=== PATIENT | female | born 1965 | race American Indian/Alaskan Native ===

== ENCOUNTER 2016-09-21 07:06 | Day surgery (SDC) | payer MEDICARE ==
[2016-09-21] MEDS ORDERED: NACL 0.9% 1000 ML 1,000 ML IV SCH (09:00)
--- NOTE | 2016-09-21 10:11 | Anesthesia Day of Surgery ---
Anesthesia Day of Surgery - Day of Surgery Patient Examined: Yes Patient H&P Reviewed: Yes Patient is NPO: Yes
--- NOTE | 2016-09-21 10:13 | Anesthesia Consultation ---
Anesthesia Consult and Med Hx Date of service: 09/21/16 - Airway Anesthetic Teeth Evaluation: Poor (missing bottom teeth, loose tooth upper left canine) ROM Head & Neck: Adequate Mental/Hyoid Distance: Adequate Mallampati Class: Class II Intubation Access Assessment: Probably Good - Pulmonary Exam CTA: Yes - Cardiac Exam Cardiac Exam: RRR - Pre-Operative Health Status ASA Pre-Surgery Classification: ASA3 Proposed Anesthetic Plan: MAC - Pulmonary Hx Smoking: Yes Hx Asthma: Yes (uses inhaler everyday, used this AM) COPD: Yes Hx Sleep Apnea: Yes (2016 with CPAP) - Cardiovascular System Hx Hypertension: No Hx Heart Attack/AMI: No - Central Nervous System Hx Seizures: No CVA: No - Endocrine Hx Renal Disease: No Hx Liver Disease: No Hx Non-Insulin Dependent Diabetes: No - Hematic Hx Anemia: Yes (hx of blood transfusion) - Other Systems Hx Alcohol Use: No Hx Obesity: Yes (BMI 60) - Additional Comments Anesthesia Medical History Comments: NAC
[2016-09-21] MEDS ORDERED: DIPRIVAN 10 MG/ML IV ONE (11:37)
--- NOTE | 2016-09-21 12:09 | Operative Report ---
Operative Report Operative Report: OPERATIVE REPORT - EGD DATE 09/21/2016 SURGERY: Upper endoscopy. SURGEON: Cr Verduzco M.D. LIVE STUDY MANAGER: Benjamín Kaye M.D. PRE OP DX: Dyspepsia POST OP DX: Hiatal Hernia TYPE OF ANESTHESIA: MAC. ESTIMATED BLOOD LOSS: None. COMPLICATIONS: None. SPECIMENS REMOVED: None. FINDINGS: 1. Hiatal hernia. 2. Otherwise, normal esophagus, stomach and first portion of duodenum. INDICATION FOR PROCEDURE: Patient is a 51-year-old female with a long history of morbid obesity. She is planned to have a weight loss procedure and is here for preoperative planning EGD. PROCEDURE DETAILS: After consent was reviewed, patient was taken back to the operating room where patient was placed in the left lateral decubitus position and a bite block was placed in the mouth. After a time-out was called, MAC anesthesia was initiated. I then passed the endoscope into her oropharynx, into her esophagus, visualized the entire esophagus, which was all within normal limits. I then visualized the stomach and the first portion of the duodenum and there were no abnormalities I could clearly visualize. I then retroflexed the scope in the stomach and visualized the hiatus and I could see a medium size hiatal hernia. I then desufflated the stomach and removed the endoscope. Patient tolerated procedure well and was transferred to recovery room in good and stable condition.
--- NOTE | 2016-09-21 12:10 | Discharge Summary ---
Providers - Providers Date of discharge: 09/21/16 Attending physician: TERI KRAFT Hospitalization Condition: Stable Procedures: EGD Disposition: DISCHARGED TO HOME OR SELFCARE Core Measure Documentation - Palliative Care Palliative Care/ Comfort Measures: Not Applicable - Core Measures Any of the following diagnoses?: none Exam - Physical Exam Narrative exam: unchanged from preop - Constitutional Vitals: Temp Pulse Resp BP Pulse Ox 98.1 F 57 L 13 134/69 99 09/21/16 08:57 09/21/16 08:57 09/21/16 08:57 09/21/16 08:57 09/21/16 08:57 Plan Activity: advance as tolerated Diet: low carbohydrate
[2016-09-21 12:41] VITALS: BP 116/65
--- NOTE | 2016-09-21 13:31 | Post Anesthesia Evaluation ---
- Post Anesthesia Evaluation Patient Participated: Yes Airway Patent: Yes Stable Respiratory Function: Yes Nausea/Vomiting: No Temp > 96.8F: Yes Pain Manageable: Yes Adequeate Hydration: Yes Anesthesia Complications: No Block Receding Appropriately: Not Applicable Patient on Ventilator: No
== END 2016-09-21 07:07 | disposition home or self-care (01) ==
LOC: GIO 07:06
PROVIDERS: ATTEND Specialist
DX: K44.9 Diaphragmatic hernia without obstruction or gangrene (principal); J45.909 Unspecified asthma, uncomplicated; J43.9 Emphysema, unspecified; G47.30 Sleep apnea, unspecified; K21.9 Gastro-esophageal reflux disease without esophagitis; D64.9 Anemia, unspecified; G43.909 Migraine, unspecified, not intractable, without status migrainosus; F41.9 Anxiety disorder, unspecified; F32.9 Major depressive disorder, single episode, unspecified; E66.01 Morbid (severe) obesity due to excess calories; Z68.44 Body mass index [BMI] 60.0-69.9, adult; Z87.891 Personal history of nicotine dependence; Z98.51 Tubal ligation status
CPT/HCPCS: 43235; J2704; J7030; 81025

== ENCOUNTER 2016-09-28 06:54 | Inpatient (IN) | payer MEDICARE ==
--- NOTE | 2016-09-23 11:54 | Anesthesia Consultation ---
<MANI STAFFORD - Last Filed: 09/23/16 11:52> Anesthesia Consult and Med Hx Date of service: 09/28/16 - Airway Anesthetic Teeth Evaluation: Good (LOOSE TOP LEFT CANINE TOOTH) ROM Head & Neck: Adequate Mental/Hyoid Distance: Adequate Mallampati Class: Class II Intubation Access Assessment: Probably Good - Pulmonary Exam CTA: Yes - Cardiac Exam Cardiac Exam: RRR - Pre-Operative Health Status ASA Pre-Surgery Classification: ASA3 Proposed Anesthetic Plan: General - Pulmonary Hx Asthma: Yes (uses inhaler everyday) Hx Sleep Apnea: Yes (2016, uses CPAP machine) - Cardiovascular System Hx Hypertension: No - Gastrointestinal Hx Gastroesophageal Reflux Disease: Yes (controlled with zantac) - Hematic Hx Anemia: Yes - Other Systems Hx Obesity: Yes (BMI 60) <FADY ELMORE - Last Filed: 09/28/16 07:50> Anesthesia Consult and Med Hx - Airway Anesthetic Teeth Evaluation: Poor (loose tooth-risks explained/overbite/ malaligned teeth) Mallampati Class: Class III
[~2016-09-28 06:54] MED LIST: APRESOLINE IV PRN; MORPHINE IV PRN; MYLICON PO PRN; NACL 0.9% 1000 ML 1,000 ML IV SCH; NORCO PO PRN; PEPCID IV NR; REGLAN IV PRN; VERSED IV NR; ZOFRAN IV PRN
[2016-09-28] MEDS ORDERED: REGLAN IV PRN (07:45)
[2016-09-28] MEDS ORDERED: APRESOLINE IV PRN (07:45)
[2016-09-28] MEDS ORDERED: MYLICON PO PRN (07:45)
[2016-09-28] MEDS ORDERED: ZOFRAN IV PRN (07:45)
[2016-09-28] MEDS ORDERED: SUBLIMAZE IV PRN (07:51)
--- NOTE | 2016-09-28 07:51 | Anesthesia Day of Surgery ---
Anesthesia Day of Surgery - Day of Surgery Patient Examined: Yes Patient H&P Reviewed: Yes Patient is NPO: Yes Beta Blockers: No Cardiac Clearance: No Pulmonary Clearance: No
[2016-09-28] MEDS ORDERED: LOVENOX SUB-Q NR (08:00)
[2016-09-28] MEDS ORDERED: LACTATED RINGERS 1,000 ML IV SCH (08:00)
[2016-09-28 08:09] LABS: Bilirubin,Urine NEG (Negative); Blood,Urine NEG (Negative); Ketones,Urine NEG (Negative); Leukocyte Esterase,Urine LG (Negative); Mucus,Urine 3+ /HPF; Nitrite,Urine NEG (Negative); Protein,Urine <15 mg/dL mg/dL (Negative); Urobilinogen,Urine < 2.0 mg/dL (<2.0)
[2016-09-28] MEDS ORDERED: WATER FOR IRRIG STERILE IR ONE (08:49)
[2016-09-28 08:55] LABS: Basophils % (Auto) 0.9 % (0.0-1.8); Eosinophils % (Auto) 3.9 % (0.0-4.3); Hematocrit 30.8 % (30.3-42.9); Hemoglobin 9.6 gm/dl (10.1-14.3); Mean Corpuscular HGB Conc 31 % (30-34); Mean Corpuscular Volume 82 fl (79-97); Platelet Count 289 K/mm3 (140-440); Red Blood Count 3.75 M/mm3 (3.65-5.03); Red Cell Distribution Width 17.1 % (13.2-15.2); White Blood Count 5.6 K/mm3 (4.5-11.0)
[2016-09-28 08:56] LABS: Mean Corpuscular Hemoglobin 26 pg (28-32)
[2016-09-28] MEDS ORDERED: ANCEF/STERILE WATER 2 GM/20 ML 2 GM/20 ML SYRINGE IV NR ×2 (09:00→10:00)
[2016-09-28] MEDS ORDERED: FLAGYL 500 MG/100 ML 500 MG/100 ML BAG IV NR ×3 (09:00→10:00)
--- NOTE | 2016-09-28 09:00 | Admit Criteria Form ---
Admission Criteria Documentation: AMBULATORY SURGERY EXCEPTION CRITERIA Ambulatory Surgery Exception Criteria ( Place 'X' for any and all applicable criteria): Surgery or procedure performed on ambulatory basis may require inpatient stay for[A] ANY ONE of the following(1)(2)(3)(4)(5)(6)(7)(8)(9): [X] I. A preoperative situation, condition, or finding that warrants inpatient stay as indicated by ANY ONE of the following: [] a) Inpatient care needed because of severity of a disease or condition rather than the surgery (eg, severe cardiac or respiratory disease, severe infection) (15) (16 ) (17) (18) [] b) Emergent procedure (eg, angioplasty for acute ischemia)(19) [] c) Complex surgical approach or situation as indicated by ANY ONE of the following(3): [] i) Open approach needed instead of usual endoscopic, transcatheter, or other less invasive procedure [] ii) Difficult approach because of previous operation [] iii) Airway monitoring required after open neck procedures(20)(21) [] iv) Large mass requiring unusually extensive dissection [] v) Additional complicating feature requiring inpatient care (eg, drain management)(22(23): [X] d) Major surgery in a pt with high anesthetic risk as indicated by ANY ONE of the following (2)(3)(5)(7)(8): [X] i) ASA risk class III or higher (severe systemic disease impairing function) [D] [] ii) Advanced age (eg, older than 85 years)(14)(24) [] iii) Symptomatic heart failure(25) [] iv) Symptomatic asthma or COPD(8)(21) [X] v) Morbid obesity with hemodynamic or respiratory problems(20)( 21)(26)(27) [] vi) Obstructive sleep apnea(20)(21) [] vii) Former premature infants who are younger than 60 weeks [] viii) High risk for severe postoperative abnormalities (eg, severe postoperative hypocalcemia after parathyroidectomy for severe hyperparathyroidism)(27)( 28) [] ix) Unstable angina(25) [] e) Drug-related risk requiring inpatient stay as indicated by ANY ONE of the following(5)(10)(14)(32)(33) [] i) Procedure requires discontinuing drugs or other therapy (eg , antiarrhythmic medication, antiseizure medication), which necessitates inpatient observation or treatment.(18)(31) [] ii) Major surgery and high risk drug use as indicated by ANY ONE of the following: [] 1) Active abuse of cocaine or similar drug [] 2) Monoamine oxidase inhibitor use [] 3) Other drug identified as posing risk [] f) Inadequate outpatient care situation as indicated by ANY ONE of the following(5)(10)(14)(32)(33) [] i) Patient lives remote from medical facility and procedure has urgent complication potential, and temporary nearby residence cannot be arranged [] ii) Patient will have postprocedure incapacitation and inadequate assistance at home, or alternative level of care cannot be arranged. [] iii) Patient will have long general anesthesia or procedure side effect resolution time, and competent person to stay with patient on first postoperative night at home or alternative level of care cannot be arranged. []iv) Other inadequate outpatient situation that cannot be handled by other means [] II. A perioperative event, condition, or finding that warrants inpatient stay as indicated by ANY ONE of the following (1)(2)(3): [] a) Inadequate physiologic recovery: cardiovascular, respiratory, or hemodynamic status not normal or near preoperative baseline(18) [] b) Hemodynamic instability [] c) Patient not alert with near normal or baseline mental status [] d) Temperature not normal or as expected and not appropriate for outpatient treatment of condition [] e) Ambulatory or appropriate activity level status not yet achieved post procedure [E](34)(35)(36) [] f) Operative site not appropriate (eg, unexpected or excessive drainage or bleeding) [] g) Postoperative effects not resolved or adequately managed (eg, significant pain or vomiting not appropriate for outpatient or next level of care)(10)(12) [] h) Complicating features requiring inpatient care as indicated by ANY ONE of the following(37): [] i) Severe complications of procedure (eg, bowel injury, airway compromise, vascular injury,severe hemorrhage) [] ii) Extensive (eg, dissection far beyond usual scope of procedure ) or prolonged (eg, 120 minutes beyond usual) surgery needed requiring inpatient postoperative care [] iii) Conversion to an open or complex procedure that requires inpatient care (eg, open vs laparoscopic cholecystectomy, abdominal vs vaginal hysterectomy)(38) [] iv) Comorbid condition or test result identified during or post procedure that requires inpatient care (7) [] v) Malignant hyperthermia(30) [] vi) Other complicating feature requiring inpatient care(22)(23) Inpatient stay may be needed until ALL of the following are present (1)(2)(3)(4) (5)(6)(10)(14)(33)(40): []a) Physiologic recovery: cardiovascular, respiratory, and hemodynamic status normal or near preoperative baseline []b) Hemodynamic stability []c) Patient alert, with near normal or baseline mental status []d) Temperature appropriate: patient afebrile or temperature appropriate for outpt treatment of condition []e) Activity level appropriate: ambulatory or appropriate activity level post procedure []f) Operative site appropriate as indicated by ALL of the following: []i) Site dry or with expected drainage []ii) Any blood noted is as expected for procedure. []g) Postoperative effects resolved or managed as indicated by ALL of the following: []i) Pain management appropriate for outpatient (or next level of) care(10) []ii) Minimal nausea and vomiting: if present, successfully treated with oral medication(12) []iii) Headache, dizziness, or drowsiness (if present) are mild. []h) Voiding status acceptable as indicated by ANY ONE of the following: []i) Voiding spontaneously []ii) No voiding but instructions given for follow-up in 6 to 8 hours []iii) Urinary catheter in place, and instructions given for follow-up []i) Complicating features requiring inpatient care manageable at a lower level of care(37) []j) Comorbid conditions manageable at a lower level of care(37) The original [email or web address] content created by [employer] has been revised. The portions of the content which have been revised are identified through the use of italic text or in bold, and [facility] has neither reviewed nor approved the modified material. All other unmodified content is copyright [email or web address]. Please see references footnoted in the original [email or web address] edition 2016 Admission Criteria Met: Yes
[2016-09-28 09:01] LABS: Phosphorous 3.2 mg/dL (2.5-4.5)
[2016-09-28 09:04] LABS: Alanine Aminotransferase 10 units/L (7-56); Albumin 3.6 g/dL (3.9-5); Alkaline Phosphatase 73 units/L (35-129); Anion Gap 13 mmol/L; BUN/Creatinine Ratio 13.75; Bilirubin,Total 0.4 mg/dL (0.1-1.2); Blood Urea Nitrogen 11 mg/dL (7-17); Calcium 8.9 mg/dL (8.4-10.2); Carbon Dioxide 26 mmol/L (22-30); Glucose 95 mg/dL (65-100); Sodium 138 mmol/L (137-145); Total Protein 7.2 g/dL (6.3-8.2)
[2016-09-28] MEDS ORDERED: DECADRON ONE (09:09)
[2016-09-28] MEDS ORDERED: ZOFRAN ONE ×2 (09:09)
[2016-09-28] MEDS ORDERED: ZEMURON IV ONE (09:09)
[2016-09-28] MEDS ORDERED: DIPRIVAN 10 MG/ML IV ONE (09:09)
[2016-09-28] MEDS ORDERED: XYLOCAINE MPF 2% ONE (09:09)
[2016-09-28] MEDS ORDERED: DILAUDID ONE (09:09)
[2016-09-28] MEDS ORDERED: QUELICIN ONE (09:09)
[2016-09-28] MEDS: LACTATED RINGERS 1,000 ML IV SCH (09:10)
[2016-09-28] MEDS ORDERED: XYLOCAINE 1% 20 mL ONE (09:25)
[2016-09-28] MEDS ORDERED: MARCAINE-EPI 0.5%-1:200,000 INFILTRATI ONE ×2 (09:25→10:08)
[2016-09-28] MEDS ORDERED: LOVENOX SUB-Q SCH (10:00)
[2016-09-28] MEDS ORDERED: TRANSDERM-SCOP TD NR (10:00)
[2016-09-28] MEDS ORDERED: NACL 0.9% IR ONE (10:08)
[2016-09-28] MEDS ORDERED: XYLOCAINE 1% 20 mL INFILTRATI ONE (10:08)
[2016-09-28] MEDS ORDERED: NEO SYNEPHRINE ONE (10:31)
[2016-09-28] MEDS ORDERED: NACL 0.9% 100 ML ONE (10:31)
[2016-09-28] MEDS ORDERED: ROBINUL ONE (11:01)
[2016-09-28] MEDS ORDERED: NEOSTIGMINE ONE (11:01)
--- NOTE | 2016-09-28 11:31 | Operative Report ---
Operative Report Operative Report: DATE OF PROCEDURE: 09/28/2016 PREOPERATIVE DIAGNOSES: Morbid obesity, hiatal hernia POSTOPERATIVE DIAGNOSES: 1.same as pre-op SURGEON: Cr Verduzco M.D. DIRECTOR POWER: MD Dr. Neymar Man PROCEDURE: 1. laparoscopic sleeve gastrectomy 2. laparoscopic hiatal hernia repair ANESTHESIA: General. ESTIMATED BLOOD LOSS: <5 mL. COMPLICATIONS: None. SPECIMEN: Partial gastrectomy. FINDINGS: 1. hiatal hernia INDICATION FOR PROCEDURE: Patient is a 51-year-old female with a long history of morbid obesity. She has tried multiple efforts at weight loss without snf success. She is here today for sleeve gastrectomy. PROCEDURE IN DETAIL: After consent was reviewed, patient was taken back to the operating room, where patient was placed supine on the bed with both arms out. The patient's legs were doubly strapped to the bed. Patient had a foot board in place. Patient had a body warmer placed by anesthesia. Patient was then prepped and draped in normal sterile surgical fashion. After a time-out was called, I made a stab incision in the umbilicus and placed a Veress needle through this incision and insufflated the abdomen to 18 mmHg pressure. I then used a 5-mm Optiview trocar to enter into the abdomen on the RUQ. I then placed a 45-degree scope through this port and inspected the abdomen. There was no injury on entry of the abdomen. I then placed two 5-mm ports in the left upper quadrant, one along the anterior axillary line and 1 midclavicular line. Another subxiphoid 5mm trocar was placed. I then placed a 15-mm port through the umbilicus. I then placed the liver retractor through the subxiphoid port and placed the patient in full reverse Trendelenburg. The right and left crura were skeletonized accentuating a small hiatal hernia. An anterior cruraplasty was perfromed with a figure-of-8 stitch using [id number] suture to reapproximate the crura. I then identified the pylorus and then counted off 6cm from the pylorus. I then used a LigaSure cutting device to enter into the lesser sac. At that point and then I took down the short gastrics all the way up to the left caleb. Then I had anesthesia pass down a 40-[place]izen [place] bougie along the lesser curvature of the stomach. I made sure everything else was out of the abdomen except the bougie. I then created my gastric sleeve using a 60-mm covidien stapler loads with adelina-strips. A black load followed by purple loads. The sleeve looked good without any twisting or torsion. I then had anesthesia to remove the bougie. Hemostasis was obtained along the staple line. A single stitch was used to reapproximate the greater omentum to the staple line. I then used Tiseel along the entirety of the staple line and some on the liver. I then removed liver grasper and took it off the field. I then removed the stomach through the 15-mm port. I then closed that fascia with a #1 PDS in a [id number] fashion using a Tony-Carmelo. I then desufflated the abdomen and then removed all port sites. I then closed the incisions with 4-0 Monocryl in subcuticular fashion. I then dressed the wounds with steristrips and gauze. Patient tolerated the procedure well and was transferred to recovery room in good and stable condition.
[2016-09-28] MEDS: DILAUDID IV PRN ×2 (12:13→12:23)
--- NOTE | 2016-09-28 12:49 | Post Anesthesia Evaluation ---
- Post Anesthesia Evaluation Patient Participated: No Airway Patent: Yes Stable Respiratory Function: Yes Nausea/Vomiting: No Temp > 96.8F: Yes Pain Manageable: Yes Adequeate Hydration: Yes Anesthesia Complications: No Block Receding Appropriately: No Patient on Ventilator: No
[2016-09-28] MEDS ORDERED: TRANSDERM-SCOP TD SCH (13:00)
[2016-09-28] MEDS: MORPHINE IV PRN ×2 (14:31→19:06)
[2016-09-28] MEDS: TORADOL IV PRN (23:56)
[2016-09-29] MEDS: NORCO PO PRN ×2 (03:59→11:56)
[2016-09-29] MEDS: TORADOL IV PRN (06:02)
[2016-09-29] MEDS: LACTATED RINGERS 1,000 ML IV SCH (06:03)
[2016-09-29 07:19] LABS: Phosphorous 3.8 mg/dL (2.5-4.5)
[2016-09-29] MEDS ORDERED: LOVENOX SUB-Q SCH (10:00)
[2016-09-29 10:44] LABS: Basophils % (Auto) 0.7 % (0.0-1.8); Eosinophils % (Auto) 0.4 % (0.0-4.3); Hematocrit 30.3 % (30.3-42.9); Hemoglobin 9.3 gm/dl (10.1-14.3); Mean Corpuscular HGB Conc 31 % (30-34); Mean Corpuscular Hemoglobin 26 pg (28-32); Mean Corpuscular Volume 83 fl (79-97); Platelet Count 282 K/mm3 (140-440); Red Blood Count 3.65 M/mm3 (3.65-5.03); Red Cell Distribution Width 17.1 % (13.2-15.2); White Blood Count 7.9 K/mm3 (4.5-11.0)
[2016-09-29] MEDS ORDERED: PROVENTIL IH PRN (11:00)
[2016-09-29 11:05] LABS: Alanine Aminotransferase 16 units/L (7-56); Albumin 3.1 g/dL (3.9-5); Albumin/Globulin Ratio 0.9 %; Alkaline Phosphatase 65 units/L (35-129); Anion Gap 16 mmol/L; Bilirubin,Total 0.4 mg/dL (0.1-1.2); Blood Urea Nitrogen 10 mg/dL (7-17); Calcium 8.6 mg/dL (8.4-10.2); Carbon Dioxide 22 mmol/L (22-30); Chloride 105.4 mmol/L (98-107); Glucose 79 mg/dL (65-100); Potassium 4.2 mmol/L (3.6-5.0); Sodium 139 mmol/L (137-145); Total Protein 6.4 g/dL (6.3-8.2)
--- NOTE | 2016-09-29 12:58 | Discharge Summary ---
Providers - Providers Date of Admission: 09/28/16 06:54 Date of discharge: 09/29/16 Attending physician: TERI KRAFT Primary care physician: ANIMAL CONTROL SPECIALIST Hospitalization Reason for admission: post op observation Condition: Stable Procedures: lap sleeve gastrectomy Disposition: DISCHARGED TO HOME OR SELFCARE Core Measure Documentation - Palliative Care Palliative Care/ Comfort Measures: Not Applicable - Core Measures Any of the following diagnoses?: none Exam - Physical Exam Narrative exam: NAD, VSS Lungs CTA BL Heart RRR Abd soft, ND, appropriate wound TTP, wounds c/d/i with dressing in place Neuro AAOx3 - Constitutional Vitals: Temp Pulse Resp BP Pulse Ox 97.9 F 65 20 113/63 98 09/29/16 08:14 09/29/16 11:15 09/29/16 11:15 09/29/16 08:14 09/29/16 11:02 Plan Activity: advance as tolerated Diet: other (bariatric stage 1) Wound: keep clean and dry Special Instructions: no heavy lifting Follow up with: PRIMARY CAREMD [Primary Care Provider] - 7 Days
[2016-09-29 13:20] VITALS: BP 128/72
== END 2016-09-29 15:26 | disposition home or self-care (01) | DRG 621 ==
LOC: 3A 06:54 → 2B-SURG 12:00
PROVIDERS: ADMIT Specialist; ATTEND Specialist
PROC: 0DB64Z3 Excision of Stomach, Percutaneous Endoscopic Approach, Vertical (ICD-10-PCS; principal; 2016-09-28)
PROC: 0BQS4ZZ (ICD-10-PCS; 2016-09-28)
PROC: 0BQR4ZZ (ICD-10-PCS; 2016-09-28)
DX: E66.01 Morbid (severe) obesity due to excess calories (principal); K44.9 Diaphragmatic hernia without obstruction or gangrene; Z68.44 Body mass index [BMI] 60.0-69.9, adult; J44.9 Chronic obstructive pulmonary disease, unspecified; F41.9 Anxiety disorder, unspecified; F32.9 Major depressive disorder, single episode, unspecified; K30 Functional dyspepsia; K21.9 Gastro-esophageal reflux disease without esophagitis; G47.30 Sleep apnea, unspecified; Z98.51 Tubal ligation status; Z83.2 Family history of diseases of the blood and blood-forming organs and certain disorders involving the immune mechanism; Z82.49 Family history of ischemic heart disease and other diseases of the circulatory system; Z82.0 Family history of epilepsy and other diseases of the nervous system; Z83.3 Family history of diabetes mellitus; Z91.013 Allergy to seafood
CPT/HCPCS: 36415; 80053; 81001; 81025; 83735; 84100; 85025; 88307; 88342; 94640; 94760; C9250; J0330; J0690; J1100; J1170; J1650; J1885; J2250; J2270; J2370; J2405; J2704; J2710; J7030; J7120

== ENCOUNTER 2016-10-11 14:57 | Emergency (ER) | payer MEDICARE ==
--- NOTE | 2016-10-11 16:34 | Emergency Department Report ---
Entered by DENVER BELTRAN, acting as scribe for CLIFFORD BRAVO PA. Chief Complaint: Abdominal Pain Stated Complaint: NAVAL INFECTED Time Seen by Provider: 10/11/16 16:13 - HPI History of Present Illness: Patient presents to the ED c/o umbilical area drainage from lap site. Pt states drainage and odor for site. Notes a possible infection. Reports burning abdominal pain for 5 days. Pt had gastric sleeve surgery done on 09/27/2016. - ROS Review of Systems: All system are negative unless stated in HPI above. - Exam Vital Signs: Vital Signs 10/11/16 15:53 Temperature 98.6 F Pulse Rate 74 Respiratory 18 Rate Blood Pressure 133/76 O2 Sat by Pulse 100 Oximetry Physical Exam: General: well nourished, well developed, nontoxic in appearance, in no acute distress Abdomen: TTP in umbilical area. Normal bowel sounds in all quadrants. Positive guarding. Positive umbilical hernia. Umbilical area with wound with mild drainage. MSE screening note: Focused history and physical exam performed. Due to findings the following was ordered: ED Disposition for MSE Condition: Stable Instructions: Abdominal Pain (ED) This documentation as recorded by the scribe,DENVER BELTRAN,accurately reflects the service I personally performed and the decisions made by ,CLIFFORD BRAVO PA.
[2016-10-11 17:16] LABS: Eosinophils % (Auto) 4.1 % (0.0-4.3); Hematocrit 33.9 % (30.3-42.9); Hemoglobin 10.5 gm/dl (10.1-14.3); Mean Corpuscular HGB Conc 31 % (30-34); Mean Corpuscular Hemoglobin 26 pg (28-32); Mean Corpuscular Volume 83 fl (79-97); Platelet Count 359 K/mm3 (140-440); Red Blood Count 4.11 M/mm3 (3.65-5.03); Red Cell Distribution Width 16.6 % (13.2-15.2); White Blood Count 6.6 K/mm3 (4.5-11.0)
[2016-10-11 17:28] LABS: Bacteria,Urine 1+ /HPF (Negative); Bilirubin,Urine NEG (Negative); Blood,Urine SM (Negative); Ketones,Urine 20 mg/dL (Negative); Leukocyte Esterase,Urine LG (Negative); Mucus,Urine 3+ /HPF; Nitrite,Urine NEG (Negative); Renal Epithelial Cells,Urine 1 /LPF; Urobilinogen,Urine < 2.0 mg/dL (<2.0)
[2016-10-11 17:36] LABS: Alanine Aminotransferase 10 units/L (7-56); Albumin 3.6 g/dL (3.9-5); Albumin/Globulin Ratio 0.8 %; Alkaline Phosphatase 82 units/L (35-129); Anion Gap 20 mmol/L; BUN/Creatinine Ratio 13.75; Bilirubin,Total 0.4 mg/dL (0.1-1.2); Blood Urea Nitrogen 11 mg/dL (7-17); Calcium 9.4 mg/dL (8.4-10.2); Carbon Dioxide 21 mmol/L (22-30); Chloride 98.8 mmol/L (98-107); Glucose 75 mg/dL (65-100); Lipase 33 units/L (13-60); Potassium 3.9 mmol/L (3.6-5.0); Sodium 136 mmol/L (137-145); Total Protein 8.1 g/dL (6.3-8.2)
[2016-10-11] MEDS ORDERED: MORPHINE ONE (21:20)
[2016-10-11] MEDS ORDERED: ZOFRAN ONE ×2 (21:20)
[2016-10-11] MEDS ORDERED: MORPHINE IV ONE (21:29)
[2016-10-11] MEDS ORDERED: ZOFRAN IV ONE (21:29)
--- NOTE | 2016-10-11 23:26 | Emergency Department Report ---
ED General Adult HPI - General Chief complaint: Abdominal Pain Stated complaint: NAVAL INFECTED Time Seen by Provider: 10/11/16 16:14 Source: patient, RN notes reviewed, old records reviewed Mode of arrival: Ambulatory Limitations: No Limitations - History of Present Illness Initial comments: This is a 51-year-old female. She is previously unknown to me. Has a past medical history of asthma and obesity. Her bariatric surgeon is Dr. Verduzco. Patient recently was admitted to the hospital for a bariatric sleeve gastrectomy. The patient presents to the ER complaining of abdominal pain. Abdominal pain is supraumbilical. It is achy. It has been present since the surgery. It worsens with palpation and decreases with rest. Patient also complains of foul-smelling discharge from the umbilicus. She denies chest pain or shortness of breath. She is not vomiting. She reports that she is passing gas but not defecating. Patient denies irritative and obstructive urinary symptoms, but reports being on antibiotic for urinary tract infection. She reports that a primary care doctor placed her on the antibiotic, but she cant remember the name. -: Gradual Location: abdomen Severity scale (0 -10): 7 Quality: aching Consistency: intermittent Improves with: movement, rest Associated Symptoms: denies: confusion, chest pain, cough, diaphoresis, fever/ chills, headaches, loss of appetite, shortness of breath, syncope, weakness - Related Data Home Medications Medication Instructions Recorded Confirmed Last Taken Ferrous Sulfate [Feosol] 325 mg PO QDAY 09/14/16 09/28/16 09/26/16 09:00 Fluticasone/Salmeterol [Advair 1 each IH Q6HR 09/14/16 09/28/16 09/27/16 20:00 250-50 Diskus] Ranitidine HCl [Zantac 150 MG TAB] 150 mg PO PRN PRN 09/14/16 09/28/16 09/26/16 09:00 Neurontin 1 tab PO DAILY 09/16/16 09/28/16 Unknown Soma 1 tab PO DAILY 09/16/16 09/28/16 Unknown Previous Rx's Medication Instructions Recorded Last Taken Type ALBUTEROL Inhaler [ProAir HFA 2 puff IH QID PRN #1 inhalation 07/10/15 09/28/16 05:00 Rx Inhaler] Ondansetron [Zofran Odt] 4 mg PO QID PRN #20 tab.rapdis 10/12/16 Unknown Rx oxyCODONE [Roxicodone] 5 mg PO Q6HR PRN #15 tablet 10/12/16 Unknown Rx Allergies Allergy/AdvReac Type Severity Reaction Status Date / Time shellfish derived Allergy Angioedema Verified 07/09/15 22:05 ED Review of Systems ROS: Stated complaint: NAVAL INFECTED Other details as noted in HPI Constitutional: denies: fever ENT: denies: dental pain, epistaxis Respiratory: denies: cough Cardiovascular: denies: chest pain Gastrointestinal: abdominal pain, constipation Genitourinary: as per HPI Musculoskeletal: as per HPI Skin: lesions Neurological: as per HPI Psychiatric: as per HPI ED Past Medical Hx - Past Medical History Previous Medical History?: Yes Hx Hypertension: No Hx Heart Attack/AMI: No Hx GERD: Yes Hx Liver Disease: No Hx Renal Disease: No Hx Headaches / Migraines: Yes (MIGRAINES) Hx Seizures: No Hx Asthma: Yes (use albuteral and advair inhalers daily) Hx COPD: Yes Additional medical history: anemia, Abd hernia - Surgical History Past Surgical History?: Yes Additional Surgical History: tubal ligation, Gastric sleeve - Social History Smoking Status: Never Smoker Substance Use Type: Non Opiate Pain, Prescribed - Medications Home Medications: Home Medications Medication Instructions Recorded Confirmed Last Taken Type ALBUTEROL Inhaler [ProAir HFA 2 puff IH QID PRN #1 inhalation 07/10/15 09/28/16 09/28/16 05:00 Rx Inhaler] Ferrous Sulfate [Feosol] 325 mg PO QDAY 09/14/16 09/28/16 09/26/16 09:00 History Fluticasone/Salmeterol [Advair 1 each IH Q6HR 09/14/16 09/28/16 09/27/16 20:00 History 250-50 Diskus] Ranitidine HCl [Zantac 150 MG TAB] 150 mg PO PRN PRN 09/14/16 09/28/16 09/26/16 09:00 History Neurontin 1 tab PO DAILY 09/16/16 09/28/16 Unknown History Soma 1 tab PO DAILY 09/16/16 09/28/16 Unknown History Ondansetron [Zofran Odt] 4 mg PO QID PRN #20 tab.rapdis 10/12/16 Unknown Rx oxyCODONE [Roxicodone] 5 mg PO Q6HR PRN #15 tablet 10/12/16 Unknown Rx ED Physical Exam - General Limitations: No Limitations General appearance: obese - Head Head exam: Present: atraumatic, normocephalic - Eye Eye exam: Present: normal appearance, EOMI. Absent: nystagmus - ENT ENT exam: Present: normal exam, normal orophraynx, mucous membranes moist, normal external ear exam - Neck Neck exam: Present: normal inspection, full ROM. Absent: tenderness, meningismus - Respiratory Respiratory exam: Present: normal lung sounds bilaterally. Absent: respiratory distress, wheezes, rales, rhonchi, stridor, chest wall tenderness, accessory muscle use, decreased breath sounds, prolonged expiratory - Cardiovascular Cardiovascular Exam: Present: regular rate, normal rhythm, normal heart sounds. Absent: bradycardia, tachycardia, irregular rhythm, systolic murmur, diastolic murmur, rubs, gallop - GI/Abdominal GI/Abdominal exam: Present: soft, tenderness (there is periumbilical tenderness. There is supraumbilical induration.), other (in the umbilicus, there is a small piece of paper towel which appears to have been lodged in the umbilicus. It is somewhat foul-smelling with some discharge. Once this has been removed, no obvious discharge is noted from the umbilicus.). Absent: distended, guarding, rebound, rigid, normal bowel sounds (patient morbidly obese , difficult to auscultate bowel sounds), pulsatile mass - Extremities Exam Extremities exam: Present: normal inspection, full ROM, normal capillary refill. Absent: tenderness, pedal edema, joint swelling, calf tenderness - Back Exam Back exam: Present: normal inspection, full ROM. Absent: tenderness, CVA tenderness (R), CVA tenderness (L), muscle spasm, paraspinal tenderness, vertebral tenderness - Neurological Exam Neurological exam: Present: alert, oriented X3, other (Extraocular movements intact. Tongue midline. No facial droop. Facial sensation intact to light touch in the V1, V2, V3 distribution bilaterally. 5 and 5 strength in 4 extremities.. Sensation is intact to light touch in 4 extremities.). Absent: motor sensory deficit - Psychiatric Psychiatric exam: Present: normal affect, normal mood - Skin Skin exam: Present: warm, dry, intact, normal color. Absent: rash ED Course Vital Signs 10/11/16 10/11/16 10/11/16 15:53 20:00 20:30 Temperature 98.6 F Pulse Rate 74 67 Respiratory 18 14 17 Rate Blood Pressure 133/76 142/93 Blood Pressure [Right] O2 Sat by Pulse 100 91 Oximetry 10/11/16 10/11/16 10/11/16 21:01 21:31 22:01 Temperature Pulse Rate 60 63 66 Respiratory 13 12 12 Rate Blood Pressure 156/87 148/74 140/92 Blood Pressure [Right] O2 Sat by Pulse 100 100 99 Oximetry 10/11/16 10/11/16 10/11/16 22:31 23:00 23:30 Temperature Pulse Rate 65 63 63 Respiratory 11 L 13 14 Rate Blood Pressure 114/47 138/71 127/73 Blood Pressure [Right] O2 Sat by Pulse 100 99 98 Oximetry 10/11/16 10/12/16 10/12/16 23:43 00:00 00:31 Temperature Pulse Rate 65 65 58 L Respiratory 15 12 13 Rate Blood Pressure 127/73 121/72 124/66 Blood Pressure [Right] O2 Sat by Pulse 100 100 Oximetry 10/12/16 03:25 Temperature 98.4 F Pulse Rate 65 Respiratory 20 Rate Blood Pressure Blood Pressure 121/58 [Right] O2 Sat by Pulse 99 Oximetry - Reevaluation(s) Reevaluation #1: 10/11/16 23:24 Differential diagnosis: Postoperative infection, complication, hernia, abscess, obstruction, bleeding, damage to adjacent structures, urinary tract infection, incidental umbilical foreign body which has already been removed Assessment and plan: 51-year-old female with abdominal pain status post [place]reich sleeve gastrectomy. Discharge from the umbilicus most likely from retained paper tell which has been removed. She is afebrile with reassuring vital signs, laboratory studies reviewed and appreciated and are unremarkable. Urinalysis grossly contaminated through epithelial cells, patient reports that she is on antibiotics for UTI and is looking him up. She is currently drinking oral contrast to obtain for CT scan of the abdomen and pelvis. Of note, there is delayed acquisition of the CT scan because the patient can only consume small quantities at a time secondary to her recent sleeve gastrectomy. Reevaluation #2: 10/12/16 02:48 patient tolerated oral contrast without difficulty. CT scan of the abdomen and pelvis with IV and oral contrast demonstrates appropriate postsurgical findings. The CT scan also demonstrated a large umbilical hernia containing omental fat which appeared to be inflamed, which is consistent with the patient's history and physical examination. There is no evidence of obstruction. Case is discussed with the covering bariatric surgeon, Dr. Lozada. She recommends that the patient follow up with Dr. Verduzco this . She further indicates that the patient should be scheduled for follow-up with Dr. Verduzco this given the timing of her recent surgery. She indicates that it is normal expected for patient's to feel constipated and to not have bowel movements. She is okay and amenable with oxycodone for pain. The patient is instructed to continue her current outpatient oral antibiotic therapy, and she is encouraged to follow up with Dr. Verduzco this . She will be instructed to apply warm compresses to the affected area. ED Medical Decision Making - Lab Data Result diagrams: 10/11/16 16:54 10/11/16 16:54 Vital Signs 10/11/16 10/11/16 10/11/16 15:53 20:00 20:30 Temperature 98.6 F Pulse Rate 74 67 Respiratory 18 14 17 Rate Blood Pressure 133/76 142/93 O2 Sat by Pulse 100 91 Oximetry 10/11/16 21:01 Temperature Pulse Rate 60 Respiratory 13 Rate Blood Pressure 156/87 O2 Sat by Pulse 100 Oximetry Lab Results 10/11/16 10/11/16 10/11/16 Range/Units 16:54 16:54 16:54 WBC 6.6 (4.5-11.0) K/mm3 RBC 4.11 (3.65-5.03) M/mm3 Hgb 10.5 (10.1-14.3) gm/dl Hct 33.9 (30.3-42.9) % MCV 83 (79-97) fl MCH 26 L (28-32) pg MCHC 31 (30-34) % RDW 16.6 H (13.2-15.2) % Plt Count 359 (140-440) K/mm3 Lymph % (Auto) 31.7 (13.4-35.0) % [place] % (Auto) 11.9 H (0.0-7.3) % Eos % (Auto) 4.1 (0.0-4.3) % Baso % (Auto) 1.0 (0.0-1.8) % Lymph # 2.1 (1.2-5.4) K/mm3 [place] # 0.8 (0.0-0.8) K/mm3 Eos # 0.3 (0.0-0.4) K/mm3 Baso # 0.1 (0.0-0.1) K/mm3 Seg Neutrophils % 51.3 (40.0-70.0) % Seg Neutrophils # 3.4 (1.8-7.7) K/mm3 Sodium 136 L (137-145) mmol/L Potassium 3.9 (3.6-5.0) mmol/L Chloride 98.8 (98-107) mmol/L Carbon Dioxide 21 L (22-30) mmol/L Anion Gap 20 mmol/L BUN 11 (7-17) mg/dL Creatinine 0.8 (0.7-1.2) mg/dL Estimated GFR > 60 ml/min BUN/Creatinine Ratio 13.75 % Glucose 75 (65-100) mg/dL Calcium 9.4 (8.4-10.2) mg/dL Total Bilirubin 0.4 (0.1-1.2) mg/dL AST 16 (5-40) units/L ALT 10 (7-56) units/L Alkaline Phosphatase 82 (35-129) units/L Total Protein 8.1 (6.3-8.2) g/dL Albumin 3.6 L (3.9-5) g/dL Albumin/Globulin Ratio 0.8 % Lipase 33 (13-60) units/L HCG, Qual Negative (Negative) Urine Color (Yellow) Urine Turbidity (Clear) Urine pH (5.0-7.0) Ur Specific [place] (1.003-1.030) Urine Protein (Negative) mg/dL Urine Glucose (UA) (Negative) mg/dL Urine Ketones (Negative) mg/dL Urine Blood (Negative) Urine Nitrite (Negative) Urine Bilirubin (Negative) Urine Urobilinogen (<2.0) mg/dL Ur Leukocyte Esterase (Negative) Urine WBC (Auto) (0.0-6.0) /HPF Urine RBC (Auto) (0.0-6.0) /HPF U Epithel Cells (Auto) (0-13.0) /HPF Urine Bacteria (Auto) (Negative) /HPF Ur Renal Epithelial Cell /LPF Urine Mucus /HPF 10/11/16 Range/Units 17:04 WBC (4.5-11.0) K/mm3 RBC (3.65-5.03) M/mm3 Hgb (10.1-14.3) gm/dl Hct (30.3-42.9) % MCV (79-97) fl MCH (28-32) pg MCHC (30-34) % RDW (13.2-15.2) % Plt Count (140-440) K/mm3 Lymph % (Auto) (13.4-35.0) % [place] % (Auto) (0.0-7.3) % Eos % (Auto) (0.0-4.3) % Baso % (Auto) (0.0-1.8) % Lymph # (1.2-5.4) K/mm3 [place] # (0.0-0.8) K/mm3 Eos # (0.0-0.4) K/mm3 Baso # (0.0-0.1) K/mm3 Seg Neutrophils % (40.0-70.0) % Seg Neutrophils # (1.8-7.7) K/mm3 Sodium (137-145) mmol/L Potassium (3.6-5.0) mmol/L Chloride (98-107) mmol/L Carbon Dioxide (22-30) mmol/L Anion Gap mmol/L BUN (7-17) mg/dL Creatinine (0.7-1.2) mg/dL Estimated GFR ml/min BUN/Creatinine Ratio % Glucose (65-100) mg/dL Calcium (8.4-10.2) mg/dL Total Bilirubin (0.1-1.2) mg/dL AST (5-40) units/L ALT (7-56) units/L Alkaline Phosphatase (35-129) units/L Total Protein (6.3-8.2) g/dL Albumin (3.9-5) g/dL Albumin/Globulin Ratio % Lipase (13-60) units/L HCG, Qual (Negative) Urine Color Tori (Yellow) Urine Turbidity Cloudy (Clear) Urine pH 5.0 (5.0-7.0) Ur Specific [place] 1.020 (1.003-1.030) Urine Protein 30 mg/dl (Negative) mg/dL Urine Glucose (UA) Neg (Negative) mg/dL Urine Ketones 20 (Negative) mg/dL Urine Blood Sm (Negative) Urine Nitrite Neg (Negative) Urine Bilirubin Neg (Negative) Urine Urobilinogen < 2.0 (<2.0) mg/dL Ur Leukocyte Esterase Lg (Negative) Urine WBC (Auto) 168.0 H (0.0-6.0) /HPF Urine RBC (Auto) 42.0 (0.0-6.0) /HPF U Epithel Cells (Auto) 47.0 H (0-13.0) /HPF Urine Bacteria (Auto) 1+ (Negative) /HPF Ur Renal Epithelial Cell 1 /LPF Urine Mucus 3+ /HPF - Radiology Data Radiology results: report reviewed, image reviewed CT scan of the abdomen and pelvis with IV contrast demonstrates gallstones. There is no evidence of cholecystitis. Status post gastric bypass surgery. No evidence of bowel obstruction. Large umbilical hernia containing omental fat which appears to be inflamed. Critical care attestation.: If time is entered above; I have spent that time in minutes in the direct care of this critically ill patient, excluding procedure time. ED Disposition Clinical Impression: Umbilical hernia, History of gastric bypass Disposition: DISCHARGED TO HOME OR SELFCARE Is pt being admited?: No Does the pt Need Aspirin: No Condition: Stable Instructions: Abdominal Pain (ED) Additional Instructions: Continue current outpatient medications. Follow up with your bariatric surgeon this . Apply warm compresses to the affected area. Take the pain medication, nausea medication as directed. Take acetaminophen [id number] every 4-6 hours as needed for pain. It is very important to follow-up with your bariatric surgeon this as directed. Continue antibiotics. I recommend that you wash the umbilical area/ belly button with gentle soap and water every 12 hours. Return to the ER right away with new pain, worsening pain, migration of pain, fevers or chills, nausea or vomiting, inability to tolerate liquid feeds. Prescriptions: Ondansetron [Zofran Odt] 4 mg PO QID PRN #20 tab.rapdis PRN Reason: Nausea oxyCODONE [Roxicodone] 5 mg PO Q6HR PRN #15 tablet PRN Reason: Pain Referrals: PRIMARY CARE, [Primary Care Provider] - 3-5 Days TERI VERDUZCO MD [Staff Physician] - 3-5 Days
[2016-10-11] MEDS ORDERED: NACL ONE (23:53)
--- NOTE | 2016-10-12 02:16 | Cat Scan Report ---
FINAL REPORT PROCEDURE: CT ABDOMEN PELVIS W CON TECHNIQUE: Computerized axial tomography of the abdomen and pelvis was performed after the IV injection of iodinated nonionic contrast. HISTORY: Abdominal Pain COMPARISON: No prior studies are available for comparison. FINDINGS: Visualized lower thorax: There are small bilateral pleural effusions larger on the right.. Liver: Normal size and attenuation. There is a tiny cyst in the left lobe of the liver. Spleen: Normal size and attenuation. Gallbladder and biliary system: There are gallstones. There is no gallbladder wall thickening or pericholecystic fluid. Bile ducts are normal in caliber.. Pancreas: Normal. Adrenals: Normal. Kidneys: Normal. GI tract: There has been gastric bypass surgery. There is no bowel obstruction, colitis or enteritis. There are diverticula of the colon. There is no diverticulitis. The appendix is not identified. There is no indirect evidence of appendicitis.. Lymph nodes and mesentery: Normal. Vasculature: Normal. Bladder: Normal. Reproductive organs: Uterus and ovaries are unremarkable.. Peritoneum: There is minimal nonspecific free pelvic fluid. There is no free air, abscess or adenopathy.. Musculoskeletal structures: No significant abnormality. Other: There is a large umbilical hernia containing omental fat which appears to be inflamed.. IMPRESSION: There are gallstones. There is no gallbladder wall thickening or pericholecystic fluid. Bile ducts are normal in caliber.. There has been gastric bypass surgery. There is no bowel obstruction, colitis or enteritis. There are diverticula of the colon. There is no diverticulitis. The appendix is not identified. There is no indirect evidence of appendicitis.. Uterus and ovaries are unremarkable.. There is minimal nonspecific free pelvic fluid. There is no free air, abscess or adenopathy.. There is a large umbilical hernia containing omental fat which appears to be inflamed..
[2016-10-12 03:29] VITALS: BP 121/58
== END 2016-10-12 03:25 | disposition home or self-care (01) ==
LOC: ED 14:57
DX: K42.9 Umbilical hernia without obstruction or gangrene (principal); K21.9 Gastro-esophageal reflux disease without esophagitis; G43.909 Migraine, unspecified, not intractable, without status migrainosus; J44.9 Chronic obstructive pulmonary disease, unspecified; J45.909 Unspecified asthma, uncomplicated; Z98.84 Bariatric surgery status; Z98.51 Tubal ligation status; Z91.013 Allergy to seafood
CPT/HCPCS: 36415; 74177; 80053; 81001; 83690; 84703; 85025; 96374; 96375; 99284; J2270; J2405; Q9967

== ENCOUNTER 2016-10-21 14:44 | Emergency (ER) | payer MEDICARE ==
[2016-10-21 16:07] LABS: Basophils % (Auto) 0.9 % (0.0-1.8); Eosinophils % (Auto) 2.9 % (0.0-4.3); Hematocrit 32.8 % (30.3-42.9); Hemoglobin 10.2 gm/dl (10.1-14.3); Mean Corpuscular HGB Conc 31 % (30-34); Mean Corpuscular Volume 84 fl (79-97); Platelet Count 344 K/mm3 (140-440); Red Blood Count 3.92 M/mm3 (3.65-5.03); Red Cell Distribution Width 16.6 % (13.2-15.2); White Blood Count 7.9 K/mm3 (4.5-11.0)
[2016-10-21 16:19] LABS: Mean Corpuscular Hemoglobin 26 pg (28-32)
[2016-10-21 16:27] LABS: Anion Gap 19 mmol/L; BUN/Creatinine Ratio 7.77; Blood Urea Nitrogen 7 mg/dL (7-17); Calcium 8.9 mg/dL (8.4-10.2); Carbon Dioxide 23 mmol/L (22-30); Chloride 95.9 mmol/L (98-107); Glucose 67 mg/dL (65-100); Potassium 3.6 mmol/L (3.6-5.0); Sodium 134 mmol/L (137-145)
[2016-10-21] MEDS ORDERED: VANCOMYCIN/NS 1 GM/250 ML 1 GM/250 ML BAG IV ONE (21:06)
[2016-10-21] MEDS ORDERED: MORPHINE IV ONE (21:07)
[2016-10-21] MEDS ORDERED: PERCOCET 5/325 PO ONE (21:12)
--- NOTE | 2016-10-21 21:22 | Emergency Department Report ---
HPI - General Chief Complaint: Wound/Laceration Time Seen by Provider: 10/21/16 21:02 - HPI HPI: This is a 51-year-old female who presents from home, dropped off by family, with complaint of a possible infected surgical incision. The patient had a incisional incarcerated hernia repair on 10/14/[address] Verduzco. Since that time the patient says that the periumbilical abdominal area has been painful and warm. She has noticed a large amount of green malodorous discharge. She denies any fever, nausea, vomiting. She is not taken anything for symptoms prior to presentation. She called the physician's office and was told to come to the emergency department for further evaluation. ED Past Medical Hx - Past Medical History Hx Hypertension: No Hx Heart Attack/AMI: No Hx GERD: Yes Hx Liver Disease: No Hx Renal Disease: No Hx Headaches / Migraines: Yes (MIGRAINES) Hx Seizures: No Hx Asthma: Yes (use albuteral and advair inhalers daily, last used this AM) Hx COPD: Yes Additional medical history: anemia, Abd hernia - Surgical History Additional Surgical History: tubal ligation, Gastric sleeve - Social History Smoking Status: Never Smoker Substance Use Type: None - Medications Home Medications: Home Medications Medication Instructions Recorded Confirmed Last Taken Type ALBUTEROL Inhaler [ProAir HFA 2 puff IH QID PRN #1 inhalation 07/10/15 10/21/16 09/28/16 05:00 Rx Inhaler] Ferrous Sulfate [Feosol] 325 mg PO QDAY 09/14/16 10/21/16 09/26/16 09:00 History Fluticasone/Salmeterol [Advair 1 each IH Q6HR 09/14/16 10/21/16 09/27/16 20:00 History 250-50 Diskus] Ranitidine HCl [Zantac 150 MG TAB] 150 mg PO PRN PRN 09/14/16 10/21/16 09/26/16 09:00 History Neurontin 1 tab PO DAILY 09/16/16 10/21/16 Unknown History Soma 1 tab PO DAILY 09/16/16 10/21/16 Unknown History Ondansetron [Zofran Odt] 4 mg PO QID PRN #20 tab.rapdis 04/25/17 05/04/17 Unknown Rx oxyCODONE [Roxicodone] 5 mg PO Q6HR PRN #15 tablet 10/12/16 10/21/16 Unknown Rx Clindamycin [Clindamycin CAP] 300 mg PO Q6H #28 capsule 10/22/16 Unknown Rx ED Review of Systems ROS: Stated complaint: STITCHES LEAKING Other details as noted in HPI Comment: All other systems reviewed and negative Constitutional: denies: chills, fever Eyes: denies: eye pain, eye discharge, vision change ENT: denies: ear pain, throat pain Respiratory: denies: cough, shortness of breath, wheezing Cardiovascular: denies: chest pain, palpitations Gastrointestinal: abdominal pain. denies: nausea, vomiting Genitourinary: denies: urgency, dysuria, discharge Musculoskeletal: denies: back pain, joint swelling, arthralgia Skin: other (incisional drainage). denies: pruritus Neurological: denies: headache, weakness, paresthesias Physical Exam - Physical Exam Vital Signs: Vital Signs 10/21/16 15:35 Temperature 98.3 F Pulse Rate 66 Respiratory 18 Rate Blood Pressure 131/78 O2 Sat by Pulse 98 Oximetry Physical Exam: GENERAL: The patient is well-developed well-nourished. HEENT: Normocephalic. Atraumatic. Extraocular motions are intact. Patient has moist mucous membranes. Pupils equal reactive to light bilaterally. NECK: Supple. Trachea is midline. CHEST/LUNGS: Clear to auscultation. There is no respiratory distress noted. HEART/CARDIOVASCULAR: Regular. There is no tachycardia. There is no gallop rub or murmur. ABDOMEN: Abdomen is soft. There is some periumbilical tenderness to palpation. There is a midline incision starting in the umbilical region and going superiorly that is a total of about 4 inches in length. There is a small opening in the incision of about 1 cm. From this opening there is some malodorous thin green discharge and it increases with palpation of the abdomen in this region. Patient has normal bowel sounds. Morbidly obese habitus. SKIN: There is a midline incision starting in the umbilical region and going superiorly that is a total of about 4 inches in length. There is a small opening in the incision of about 1 cm. From this opening there is some malodorous thin green discharge and it increases with palpation of the abdomen in this region. NEURO: The patient is awake, alert, and oriented. The patient is cooperative. The patient has no focal neurologic deficits. The patient has normal speech. MUSCULOSKELETAL: There is no tenderness or deformity. There is no limitation range of motion. There is no evidence of acute injury. ED Course Vital Signs 10/21/16 15:35 Temperature 98.3 F Pulse Rate 66 Respiratory 18 Rate Blood Pressure 131/78 O2 Sat by Pulse 98 Oximetry - Consultations Consultation #1: I spoke with the patient's surgeon, Dr. Chung, who has agreed to see the patient this morning at 9 AM in their office here at the hospital. However he has asked for the area to be opened slightly, like a "I&D", and then packed. 10/22/16 05:32 - I & D Abdomen Type of Procedure: Complex Site: midline supraumbilical incisional abscess Blade Size: 11 I & D Procedure: sterile drapes applied, sterile dressing applied, gauze wick placed Progress: The patient had her abdomen cleaned with chlorhexidine solution. 4 mL of 2% lidocaine were placed along the edges of the incision which is slightly gapped. The patient had appropriate local anesthesia, the 11 blade was used to open up the remaining portion of the incision and cutting the sutures. The area was then packed with 1/2 inch iodoform gauze. This was covered with a abdominal pad and sterile dressing. ED Medical Decision Making - Lab Data Result diagrams: 10/21/16 15:46 10/21/16 15:46 - Radiology Data Radiology results: report reviewed, image reviewed interpreted by me: Abdominal x-ray shows nonspecific nonobstructive bowel gas. Ultrasound of the abdomen shows an abnormal area of heterogenous echogenicity superior to the umbilicus. CT scan is recommended to further evaluate the abnormality. CT of the abdomen and pelvis with IV contrast shows resolving abscess with cellulitis in the anterior abdominal wall near the umbilicus. There remains a small fluid collection measuring approximately 2 cm. - Medical Decision Making 51-year-old female presents the emergency department with some periumbilical abdominal discomfort and an area of draining malodorous green discharge. The patient doesn't fact have some warm skin to that area and there is malodorous thin green discharge coming from a small opening along her incisional site from a previous incarcerated incisional hernia repair. Patient's labs are unremarkable. Abdominal x-ray does not show any acute process. Abdominal ultrasound shows concern for a 7 x 4 cm area of fluid collection. However it recommended a CT scan for further evaluation. CT scan shows an area of cellulitis and a 2 cm fluid collection concerning for abscess. I spoke with the patient's surgeon, who did her previous surgery, and he requested that the incision be opened and the area packed and he will see the patient this morning at 9 AM. The patient was given a dose of vancomycin. The surgeon's office is here in the hospital. The patient will remain in the emergency department until it is time for her to follow-up with the surgeon and will be discharged to do so. - Differential Diagnosis cellulitis, abscess, hernia Critical Care Time: No Critical care attestation.: If time is entered above; I have spent that time in minutes in the direct care of this critically ill patient, excluding procedure time. ED Disposition Clinical Impression: Cellulitis, abdominal wall Incisional abscess Qualifiers: Encounter type: initial encounter Qualified Code(s): T81.4XXA - Infection following a procedure, initial encounter Post-operative complication Qualifiers: Surgical complication system/body Area: skin Surgical complication type: unspecified Procedure type: dermatologic Qualified Code(s): L76.82 - Other postprocedural complications of skin and subcutaneous tissue Disposition: DISCHARGED TO HOME OR SELFCARE Is pt being admited?: No Condition: Stable Instructions: Abscess (ED), Cellulitis (ED) Additional Instructions: Follow-up with Dr Kaye at 9 AM this morning without fail. Prescriptions: Clindamycin [Clindamycin CAP] 300 mg PO Q6H #28 capsule Referrals: IWONA KAYE MD [Staff Physician] - 10/22/16 9:00 am Time of Disposition: 05:45
--- NOTE | 2016-10-22 00:23 | Ultrasound Report ---
FINAL REPORT PROCEDURE: US ABDOMEN LIMITED TECHNIQUE: Real-time sonography was performed of the anterior abdominal wall with image documentation. CPT 47774 HISTORY: Pain. Evaluate wall abscess COMPARISON: No prior studies are available for comparison. FINDINGS: There is an area of heterogeneous mixed echogenicity visualized in the anterior abdominal wall were the patient complains of pain. Etiology is uncertain. This could represent hernia verses postsurgical change versus postsurgical change with fluid collection. Study is limited by the patient's large body habitus. Consider follow-up CT scan to evaluate the abnormality further.. The abnormality extends over approximately 7.7 x 3.7 centimeter. IMPRESSION: Abnormal a area of heterogeneous echogenicity superior to the umbilicus as described. Recommend CT scan to further evaluate this abnormality. Study is currently limited by the patient's large body habitus.
[2016-10-22] MEDS ORDERED: NACL ONE (01:01)
--- NOTE | 2016-10-22 02:25 | Cat Scan Report ---
FINAL REPORT PROCEDURE: CT ABDOMEN PELVIS W CON TECHNIQUE: Computerized axial tomography of the abdomen and pelvis was performed after the IV injection of iodinated nonionic contrast. HISTORY: abd pain, abscess collection COMPARISON: Abdominal wall ultrasound 10/21/2016 FINDINGS: Visualized lower thorax: Bilateral lower lung atelectasis and mild effusions.. Liver: Normal size and attenuation. Spleen: Normal size and attenuation. Gallbladder and biliary system: Are multiple stones identified within the gallbladder. The gallbladder lumen is slightly distended. No dilatation of the biliary ductal system.. Pancreas: Normal. Adrenals: Normal. Kidneys: Normal. GI tract: No obstruction. No ileus or enteritis. The cecum and colon are normal. The appendix region is normal.. Lymph nodes and mesentery: Normal. Vasculature: Normal. Bladder: Normal. Reproductive organs: The uterus is normal. A cyst on the right ovary measures 3 centimeters.. Peritoneum: No free fluid. Musculoskeletal structures: Moderate degenerative changes of the thoracic spine.. Other: There is soft tissue swelling identified in the anterior abdominal wall soft tissues near the umbilicus. The findings are consistent with cellulitis and resolving abscess in this region. There remains a small fluid collection measuring approximately 2 centimeters.. IMPRESSION: Resolving abscess with cellulitis in the anterior abdominal wall near the umbilicus. There remains a small fluid collection measuring approximately 2 centimeters. There is no evidence of intestinal urinary tract obstruction. No ileus or enteritis. Cholelithiasis..
[2016-10-22] MEDS ORDERED: XYLOCAINE 2% INFILTRATI ONE (03:04)
[2016-10-22] MEDS ORDERED: PERCOCET 5/325 ONE (04:35)
[2016-10-22] MEDS ORDERED: PERCOCET 5/325 PO ONE (04:38)
[2016-10-22 05:22] VITALS: BP 124/76
--- NOTE | 2016-10-22 07:22 | XRay Report ---
Abdomen 2 views: History: Abdominal pain, abdominal drainage. Findings: No free intraperitoneal air. Moderate amount of air in small bowel with minimal air in large bowel. No bowel distention, wall thickening or fluid levels. No radiopaque calculus or abnormal calcification. Impression: Nonspecific findings. No definite evidence of bowel obstruction.
== END 2016-10-22 05:59 | disposition home or self-care (01) ==
LOC: ED 14:44
DX: L03.311 Cellulitis of abdominal wall (principal); T81.4XXA Infection following a procedure, initial encounter; L76.82 Other postprocedural complications of skin and subcutaneous tissue; K21.9 Gastro-esophageal reflux disease without esophagitis; G43.909 Migraine, unspecified, not intractable, without status migrainosus; J45.909 Unspecified asthma, uncomplicated; D64.9 Anemia, unspecified; J44.9 Chronic obstructive pulmonary disease, unspecified
CPT/HCPCS: 10061; 36415; 74020; 74177; 76705; 80048; 82140; 85025; 96365; 96366; 99284; J3370; Q9967

== ENCOUNTER 2016-11-10 13:09 | Emergency (ER) | payer MEDICARE ==
[2016-11-10 13:49] VITALS: BP 132/88
--- NOTE | 2016-11-11 08:22 | Vascular Lab Report ---
LOWER EXTREMITY VENOUS DUPLEX: REASON FOR EXAM: Pain and swelling of the lower extremities. COMMENTS ON THE RIGHT: All veins visualized are freely compressible without evidence of internal echogenicity. Flow is spontaneous and phasic throughout. COMMENTS ON THE LEFT: All veins visualized are freely compressible without evidence of internal echogenicity. Flow is spontaneous and phasic throughout. Clot noted in the greater saphenous vein without extension into the common femoral vein. IMPRESSION: No evidence of acute or chronic deep venous thrombosis in either lower extremity. Superficial thrombophlebitis in the left lower extremity
== END 2016-11-11 04:12 | disposition left against medical advice (07) ==
LOC: ED 13:09
DX: M79.605 Pain in left leg (principal); G43.909 Migraine, unspecified, not intractable, without status migrainosus; D64.9 Anemia, unspecified; J44.9 Chronic obstructive pulmonary disease, unspecified; Z86.718 Personal history of other venous thrombosis and embolism; Z91.013 Allergy to seafood; Z53.21 Procedure and treatment not carried out due to patient leaving prior to being seen by health care provider
CPT/HCPCS: 93970

== ENCOUNTER 2016-11-11 14:11 | Emergency (ER) | payer MEDICARE ==
[2016-11-11 14:42] VITALS: BP 123/81
--- NOTE | 2016-11-11 16:48 | Emergency Department Report ---
ED Lower Extremity HPI - General Chief Complaint: Extremity Injury, Lower Stated Complaint: LEFT LEG PAIN Time Seen by Provider: 11/11/16 16:05 Source: patient Mode of arrival: Ambulatory Limitations: No Limitations - History of Present Illness Initial Comments: 51-year-old female past medical history obesity, DVT 2014, hypertension, hyperlipidemia. Patient states she had gastric sleeve surgery done near beginning of September 2016. Patient presents with complaint of one week of left lower extremity discomfort. Patient states that she has been developing varicose veins and left lower extremity and states that they're very uncomfortable. Patient denies any shortness of breath no nausea no vomiting no chest pain no palpitations reported by patient. Patient is ambulatory without assistance. Patient states that the area above her left ankle is slightly more painful than usual. Denies any fever or chills denies any direct trauma to foot or ankle. MD Complaint: other Onset/Timin -: week(s) Injury: Leg: Left (lle medial above left lateral mallelous) Severity: moderate Severity scale (0 -10): 5 Improves With: nothing Associated Symptoms: ambulatory - Related Data Home Medications Medication Instructions Recorded Confirmed Last Taken Ferrous Sulfate [Feosol] 325 mg PO QDAY 09/14/16 10/21/16 09/26/16 09:00 Fluticasone/Salmeterol [Advair 1 each IH Q6HR 09/14/16 10/21/16 09/27/16 20:00 250-50 Diskus] Ranitidine HCl [Zantac 150 MG TAB] 150 mg PO PRN PRN 09/14/16 10/21/16 09/26/16 09:00 Neurontin 1 tab PO DAILY 09/16/16 10/21/16 Unknown Soma 1 tab PO DAILY 09/16/16 10/21/16 Unknown Previous Rx's Medication Instructions Recorded Last Taken Type ALBUTEROL Inhaler [ProAir HFA 2 puff IH QID PRN #1 inhalation 07/10/15 09/28/16 05:00 Rx Inhaler] Ondansetron [Zofran Odt] 4 mg PO QID PRN #20 tab.rapdis 10/12/16 Unknown Rx oxyCODONE [Roxicodone] 5 mg PO Q6HR PRN #15 tablet 10/12/16 Unknown Rx Clindamycin [Clindamycin CAP] 300 mg PO Q6H #28 capsule 10/22/16 Unknown Rx Acetaminophen/Codeine [Tylenol 1 tab PO Q6H PRN #9 tab 11/11/16 Unknown Rx /Codeine # 3 tab] Allergies Allergy/AdvReac Type Severity Reaction Status Date / Time shellfish derived Allergy Angioedema Verified 11/11/16 14:34 ED Review of Systems ROS: Stated complaint: LEFT LEG PAIN Other details as noted in HPI Constitutional: denies: chills, fever Eyes: denies: eye pain, eye discharge, vision change ENT: denies: ear pain, throat pain Respiratory: denies: cough, shortness of breath, wheezing Cardiovascular: denies: chest pain, palpitations Endocrine: no symptoms reported Gastrointestinal: as per HPI (gastric sleeve 09/2016). denies: abdominal pain, nausea, diarrhea Genitourinary: denies: urgency, dysuria, discharge Musculoskeletal: denies: back pain, joint swelling, arthralgia Skin: denies: rash, lesions Neurological: denies: headache, weakness, paresthesias Psychiatric: denies: anxiety, depression Hematological/Lymphatic: denies: easy bleeding, easy bruising ED Past Medical Hx - Past Medical History Hx Hypertension: No Hx Heart Attack/AMI: No Hx Deep Vein Thrombosis: Yes Hx GERD: Yes Hx Liver Disease: No Hx Renal Disease: No Hx Headaches / Migraines: Yes (MIGRAINES) Hx Seizures: No Hx Asthma: Yes (use albuteral and advair inhalers daily, last used this AM) Hx COPD: Yes Additional medical history: anemia, Abd hernia. OBESITY - Surgical History Additional Surgical History: tubal ligation, Gastric sleeve - Social History Smoking Status: Never Smoker Substance Use Type: None - Medications Home Medications: Home Medications Medication Instructions Recorded Confirmed Last Taken Type ALBUTEROL Inhaler [ProAir HFA 2 puff IH QID PRN #1 inhalation 07/10/15 10/21/16 09/28/16 05:00 Rx Inhaler] Ferrous Sulfate [Feosol] 325 mg PO QDAY 09/14/16 10/21/16 09/26/16 09:00 History Fluticasone/Salmeterol [Advair 1 each IH Q6HR 09/14/16 10/21/16 09/27/16 20:00 History 250-50 Diskus] Ranitidine HCl [Zantac 150 MG TAB] 150 mg PO PRN PRN 09/14/16 10/21/16 09/26/16 09:00 History Neurontin 1 tab PO DAILY 09/16/16 10/21/16 Unknown History Soma 1 tab PO DAILY 09/16/16 10/21/16 Unknown History Ondansetron [Zofran Odt] 4 mg PO QID PRN #20 tab.rapdis 10/12/16 10/21/16 Unknown Rx oxyCODONE [Roxicodone] 5 mg PO Q6HR PRN #15 tablet 10/12/16 10/21/16 Unknown Rx Clindamycin [Clindamycin CAP] 300 mg PO Q6H #28 capsule 10/22/16 Unknown Rx Acetaminophen/Codeine [Tylenol 1 tab PO Q6H PRN #9 tab 11/11/16 Unknown Rx /Codeine # 3 tab] ED Physical Exam - General Limitations: No Limitations General appearance: alert, in no apparent distress - Head Head exam: Present: atraumatic, normocephalic - Eye Eye exam: Present: normal appearance, PERRL, EOMI - ENT ENT exam: Present: mucous membranes moist - Neck Neck exam: Present: normal inspection - Respiratory Respiratory exam: Present: normal lung sounds bilaterally. Absent: respiratory distress - Cardiovascular Cardiovascular Exam: Present: regular rate, normal rhythm. Absent: systolic murmur, diastolic murmur, rubs, gallop - GI/Abdominal GI/Abdominal exam: Present: soft, normal bowel sounds - Extremities Exam Extremities exam: Present: normal inspection - Expanded Lower Extremity Exam Left Hip exam: Present: normal inspection, full ROM Upper Leg exam: Present: normal inspection, full ROM Knee exam: Present: normal inspection, full ROM Lower Leg exam: Present: normal inspection, full ROM, tenderness (mild superficial tenderness LLE on plaption of varocise veins, no erythema or cell; ulitis, no vascualr ulceration) Ankle exam: Present: normal inspection, full ROM Foot/Toe exam: Present: normal inspection, full ROM Neuro vascular tendon exam: Present: no vascular compromise (distal dorsalis pedis and posteriro tibial pulses intact) 1 - mild discomfort on palpation here - Back Exam Back exam: Present: normal inspection - Neurological Exam Neurological exam: Present: alert, oriented X3, CN II-XII intact, normal gait - Psychiatric Psychiatric exam: Present: normal affect, normal mood - Skin Skin exam: Present: warm, dry, intact, normal color. Absent: rash ED Course Vital Signs 11/11/16 11/11/16 14:38 18:08 Temperature 98.6 F Pulse Rate 76 Respiratory 18 16 Rate Blood Pressure 123/81 O2 Sat by Pulse 100 Oximetry ED Lower Extremity MDM - Medical Decision Making A/P: Superficial thrombophlebitis left lower extremity 1-I discussed utility of anticoagulation in this pt with ED Attending Dr. Baxter as well as Pts bariatric Specialist Dr. Kaye and superintendent distribution vascular surgeon Dr. Jackson. As per my discussion with both consultations if pt does NOT have a DVT in the extremity there little to no utility in anticoagulation or prophylaxis with ASA. From Dr Spivey perspective, use of nsaids or asa may elevate risk of ulceration and GERD in gastric sleeve pt. As per Dr. Jackson AC has little to no clinical utility for pts with superficial vein thrombosis. I reported back to Dr. Baxter after my discussion with them. 2- I discussed the specialists recommendation with the pt and advised her to use warm compresses to relieve pain on site. there are no visible signs of infection or cellulitis, the distal posterior tibial and dorsalis pedis pulses are intact on palpation 3- short course tylenol #3 for pain, will refrain from nsaids for now 4- I advised pt to return to the ED in approx 1 week for repeat LE doppler and re-assessment of the location of SVT. Currently in greater saphenous vein as per vascular report. 5- I advised patient to return to the ED if she develops any chest pain worsened pain and leg significant amount of swelling in the leg. Patient states she understood all of my instructions Critical care attestation.: If time is entered above; I have spent that time in minutes in the direct care of this critically ill patient, excluding procedure time. ED Disposition Clinical Impression: Superficial thrombophlebitis Qualifiers: Superficial thrombophlebitis-Involved body area: lower extremity Laterality: left Qualified Code(s): I80.02 - Phlebitis and thrombophlebitis of superficial vessels of left lower extremity Disposition: DISCHARGED TO HOME OR SELFCARE Is pt being admited?: No Does the pt Need Aspirin: No Condition: Stable Instructions: Superficial Thrombophlebitis (ED), RICE Therapy (ED) Additional Instructions: pt advised to return to [facility] within 1 week for repeat LE vascular study to r/o DVT. Pt given order form. Prescriptions: Acetaminophen/Codeine [Tylenol /Codeine # 3 tab] 1 tab PO Q6H PRN #9 tab PRN Reason: Pain Referrals: JES ROBBINS MD [Staff Physician] - 3-5 Days Forms: Accompanied Note, Work/School Release Form(ED)
--- NOTE | 2016-11-11 17:12 | Event Note ---
Date: 11/11/16 This patient presents to the ER with approximately 1 week of left lower extremity pain. Above the medial malleolus, she is complaining of tenderness and swelling. She had gastric sleeve surgery approximately 6 weeks ago and also has a history of gastric ulcers. An ultrasound performed in the emergency department demonstrated no evidence of deep vein thrombosis. There was a superficial thrombus noted in the most peripheral aspect of the left greater saphenous vein. This superficial thrombus can be treated conservatively, with warm compresses and [id number] pain relief. Anticoagulation is not indicated in this clinical scenario.
[2016-11-11] MEDS ORDERED: NORCO 5/325 PO ONE (17:57)
== END 2016-11-11 18:10 | disposition home or self-care (01) ==
LOC: ED 14:11
DX: I80.02 Phlebitis and thrombophlebitis of superficial vessels of left lower extremity (principal); K21.9 Gastro-esophageal reflux disease without esophagitis; G43.909 Migraine, unspecified, not intractable, without status migrainosus; J44.9 Chronic obstructive pulmonary disease, unspecified; J45.909 Unspecified asthma, uncomplicated; Z98.51 Tubal ligation status; Z91.013 Allergy to seafood
CPT/HCPCS: 99282